=== PATIENT | female | born 1955 | race African-American/Black ===

== ENCOUNTER 2022-01-15 00:22 | Day surgery (SDC) | payer MEDICARE, SELFPAY ==
[2022-01-08 08:22] VITALS: BMI 29.5
--- NOTE | 2022-01-12 10:40 | SUR.PREOP ---
1042 Spoke with the patient and instructed the patient to not take her magnesium citrate due to the recall. Patient voiced understanding.
[2022-01-15 11:40] VITALS: BP 134/89; PULSE 58; RESP 16; TEMP 36.6; O2SAT 100
[2022-01-15] MEDS: LACTATED RINGERS 1,000 ML 150 ML IV CONT (11:43)
--- NOTE | 2022-01-15 11:56 | WPDANESEPPF ---
Anes - Initial Pre Proc Eval Procedure: Operation Date: 01/15/22 13:00 Proposed Procedures p Screening Colonoscopy - Jesse Mares MD Date/Time: 01/15/22 11:56 Surgeon: Jesse Mares MD Pre Op Diagnosis: neoplasm screening Patient Data Age: 66 Gender: F Height: 1.57 m Weight: 72 kg Last Vital Signs Temp 98 F 01/15/22 11:40 Pulse 58 L 01/15/22 11:40 Resp 16 01/15/22 11:40 BP 134/89 01/15/22 11:40 Pulse Ox 100 01/15/22 11:40 O2 Del Method Room Air 01/15/22 11:40 Allergies Allergy/AdvReac Type Severity Reaction Status Date / Time Penicillins Allergy Unknown Rash Verified 01/15/22 11:38 Home Medications Medication Instructions Recorded Confirmed Type alendronate-vitamin D3 1 tablet PO DAILY 01/08/22 01/15/22 History Patient hx anesthesia problems: none Family hx anesthesia problems: none Results Review: All pre-operative results and documents have been reviewed as part of the pre-operative evaluation. [facility] Social History Social History Smoking status: Current every day smoker Tobacco type: cigarettes Alcohol intake: current Alcohol use details: occasionally Substance use: never Substance use type: does not use Living arrangements: alone Spiritual care concerns: No Anes - Eval Final PreProcedure Day of Procedure 01/15/22 11:56 Patient weight: overweight Heart: regular rate and rhythm Lungs: clear to auscultation Airway: Mallampati scale class II Neurological: alert and oriented Last oral intake: >/= 8 hours ASA classification: II Emergent: no Anesthetic plan: proceed Anesthesia type and monitoring: general GIVS and standard monitoring Results Review: All pre-operative results and documents have been reviewed as part of the pre-operative evaluation. Informed Consent: The patient's anesthetic plan and its attendant risks and benefits were discussed with the patient/family/POA. Questions were solicited and answers provided to the satisfaction of the patient/family/POA.
--- NOTE | 2022-01-15 12:08 | P.HP_ITS ---
H&P: HPI History of Present Illness Date/Time: 01/15/22 12:08 Chief Complaint: Neoplasia screening Narrative: This is a 66-year-old white female patient presents for neoplasia screening. Patient reports her current weight appetite bowel movements are normal. Patient denies abdominal pain. She has had no bleeding. Family history is noncontributory. Review of Systems Review of Systems: Review of systems noncontributory. [facility] Social History Social History Smoking status: Current every day smoker Tobacco type: cigarettes Alcohol intake: current Alcohol use details: occasionally Substance use: never Substance use type: does not use Living arrangements: alone Spiritual care concerns: No Meds Home Medications and Allergies Home Medications Medication Instructions Recorded Confirmed Type alendronate-vitamin D3 1 tablet PO DAILY 01/08/22 01/15/22 History Allergies Allergy/AdvReac Type Severity Reaction Status Date / Time Penicillins Allergy Unknown Rash Verified 01/15/22 11:38 Vital Signs Vital Signs - 24 hr 01/15/22 11:40 Temperature 98 F Pulse Rate 58 L Respiratory Rate 16 Blood Pressure 134/89 Pulse Oximetry 100 Oxygen Delivery Room Air Exam Narrative: Physical exam reveals patient be alert. Vital signs stable. HEENT exam is unremarkable. Patient is anicteric. Lungs are clear to auscultation and percussion. Heart is without murmur or extra sounds. Abdominal exam bowel sounds present soft nontender with no organomegaly. Digital external rectal exam is normal. Assessment and Plan Assessment and plan (1) Encounter for screening colonoscopy: Code(s): Z12.11 - Encounter for screening for malignant neoplasm of colon Status: Acute Assessment and Plan: Patient presents today for screening colonoscopy. Appears to be at average risk for colon polyps.
[2022-01-15] MEDS: SIMETHICONE ORAL SUSPENSION 20 MG/0.3 ML 30 ML BOTTLE 0.6 ML IRRIGATION (12:17)
[2022-01-15 12:29] VITALS: BP 106/53; PULSE 72; RESP 26; O2SAT 100
[2022-01-15 12:39] VITALS: BP 109/73; PULSE 72; RESP 19; O2SAT 100
[2022-01-15 12:49] VITALS: BP 143/70; PULSE 53; RESP 18; O2SAT 100
== END 2022-01-15 12:55 | disposition home or self-care (01) ==
PROVIDERS: PCP Physician Assistant; Visit Provider Internal Medicine Gastroenterology
PROC: 0DJD8ZZ Inspection of Lower Intestinal Tract, Via Natural or Artificial Opening Endoscopic (ICD-10-PCS; CPT 45378; principal; 2022-01-15 13:00)
DX: Z12.11 Encounter for screening for malignant neoplasm of colon (principal); D12.2 Benign neoplasm of ascending colon; K57.30 Diverticulosis of large intestine without perforation or abscess without bleeding; K64.8 Other hemorrhoids; F17.210 Nicotine dependence, cigarettes, uncomplicated
CPT/HCPCS: 45380; 88305; J2704; J7120

== ENCOUNTER 2025-03-08 12:15 | Outpatient (CLI) | payer MEDICARE, SELFPAY ==
--- NOTE | ~2025-03-08 | MM_ITS ---
EXAMINATION: MM diagnostic diallo BI w ben INDICATION: 69-year old female; follow-up diagnostic mammogram. Patient felt a lump in her left breast evaluated on 04/24/2024. However the lump has resolved in the interval. COMPARISON: 04/24/2024 and 01/01/2022 TECHNIQUE: Digital breast tomosynthesis CC and MLO views of Both breasts were obtained with computer-aided detection to assist in interpretation of the study. FINDINGS: There are scattered areas of fibroglandular density. There is no evidence of suspicious mass, calcification, or architectural distortion to suggest malignancy in either breast. IMPRESSION: . No mammographic evidence of malignancy. 2. Recommend routine screening mammography in one year. BI-RADS Category 1: Negative Reviewed, dictated and finalized at location B.
== END 2025-03-08 12:16 | disposition home or self-care (01) ==
LOC: ANHFOHIMG 12:17
PROVIDERS: Visit Provider Surgery
DX: N63.20 Unspecified lump in the left breast, unspecified quadrant (principal); N64.4 Mastodynia; N63.25 Unspecified lump in the left breast, overlapping quadrants
CPT/HCPCS: 77062; 77066; G0279